=== PATIENT | female | born 1995 | race Caucasian/White ===

== ENCOUNTER 2017-11-27 12:07 | Emergency (ER) | payer OTHER ==
[~2017-11-27] VITALS: Ht 160 cm; Wt 99.8 kg
[~2017-11-27 12:07] MED LIST: ALBU90OI INH; Amoxicillin500 MG PO; CEFP200 PO; NAPR500 PO; OXYACE5T; Percocet 5-3251 EACH PO; Prednisone20 MG PO; Zofran Odt8 MG SL
[2017-11-27 13:06] LABS: BASOPHILS ABSOLUTE AUTO 0.02 K/mm3 (0.00-0.23); BASOPHILS PERCENT AUTO 0 % (0-2); EOSINOPHILS ABSOLUTE AUTO 0.19 K/mm3 (0.00-0.68); EOSINOPHILS PERCENT AUTO 2 % (0-6); Hematocrit 41.3 % (33.0-51.0); Hemoglobin 13.8 g/dL (11.5-16.0); IMMATURE GRAN ABSOLUTE AUTO 0.02 K/mm3 (0.00-0.10); IMMATURE GRAN PERCENT AUTO 0 % (0-1); LYMPHOCYTES PERCENT AUTO 22 % (21-46); MONOCYTES ABSOLUTE AUTO 0.63 K/mm3 (0.16-1.47); MONOCYTES PERCENT AUTO 7 % (4-13); Mean Corpuscular HGB 25.6 pg (26.0-34.0); Mean Corpuscular HGB Conc 33.4 g/dL (31.5-36.5); Mean Corpuscular Volume 77 fL (80-100); Mean Platelet Volume 9.5 fL (9.1-12.4); NEUTROPHILS ABSOLUTE AUTO 6.46 K/mm3 (1.96-9.15); NEUTROPHILS PERCENT AUTO 69 % (41-73); Platelet Count 371 K/mm3 (150-400); RDW Coefficient Variation 16.8 % (11.7-14.2); RDW Standard Deviation 46.2 fL (35.1-46.3); Red Blood Cell Count 5.39 M/mm3 (3.80-5.20); White Blood Cell Count 9.32 K/mm3 (4.00-11.30)
[2017-11-27 13:25] LABS: Alanine Aminotransfer (ALT/SGP 49 U/L (12-78); Albumin, Blood 3.6 g/dL (3.4-5.0); Albumin/Globulin Ratio 0.8 (0.8-1.8); Alk Phos 105 U/L (50-136); Anion Gap 8 mmol/L (6-16); Aspartate Aminotrans (AST/SGOT 25 U/L (12-37); Bilirubin, Total 0.5 mg/dL (0.1-1.0); Blood Urea Nitrogen 8 mg/dL (8-24); Bun/Creatinine Ratio 14.5 (12.0-20.0); CO2, Blood 24 mmol/L (21-32); Chloride, Blood 104 mmol/L (98-108); Creatinine, Blood 0.55 mg/dL (0.40-1.00); Globulin, Blood 4.5 g/dL (2.2-4.0); Glomerular Filtration Rate >60 (60-); Glucose, Blood 93 mg/dL (70-99); Potassium, Blood 3.8 mmol/L (3.5-5.5); Sodium, Blood 136 mmol/L (136-145); Total Protein, Blood 8.1 g/dL (6.4-8.2)
[2017-11-27 13:43] LABS: Beta HCG, Quantitative, Serum 12370 mIU/mL (0-3)
[2017-11-27] MEDS ORDERED: PROG100 (13:49)
== END 2017-11-27 14:40 | disposition home or self-care (01) ==
LOC: ER 12:07
PROVIDERS: Emergency Medicine
DX: O20.9 Hemorrhage in early pregnancy, unspecified (principal); O24.111 Pre-existing type 2 diabetes mellitus, in pregnancy, first trimester; Z3A.01 Less than 8 weeks gestation of pregnancy; Z88.1 Allergy status to other antibiotic agents; Z79.899 Other long term (current) drug therapy
CPT/HCPCS: 36415; 76801; 76817; 80053; 84702; 85025; 96360; 99284; J7030

== ENCOUNTER → 2017-12-31 | Outpatient (CLI) | payer OTHER ==
[~2017-12-31] MED LIST changes: +IBUP800 PO; +PROG100
[2018-01-01 08:50] LABS: Source Vaginal/Cervical
== END | disposition home or self-care (01) ==
LOC: LAB 16:18
PROVIDERS: Obstetrics & Gynecology
DX: Z36.89 Encounter for other specified antenatal screening (principal)
CPT/HCPCS: 87491; 87591; G0123

== ENCOUNTER → 2018-06-25 | Outpatient (CLI) | payer OTHER ==
[~2018-06-25] MED LIST changes: -IBUP800 PO
== END | disposition home or self-care (01) ==
LOC: LAB 15:08 → LAB SHORT 15:08
DX: Z34.80 Encounter for supervision of other normal pregnancy, unspecified trimester (principal)
CPT/HCPCS: 87081; 87653

== ENCOUNTER 2018-07-16 13:14 | Inpatient (IN) | payer OTHER ==
[~2018-07-16] VITALS: Ht 160 cm; Wt 104.0 kg
[2018-07-18 11:25] LABS: BASOPHILS ABSOLUTE AUTO 0.02 K/mm3 (0.00-0.23); BASOPHILS PERCENT AUTO 0 % (0-2); EOSINOPHILS ABSOLUTE AUTO 0.06 K/mm3 (0.00-0.68); EOSINOPHILS PERCENT AUTO 1 % (0-6); Hematocrit 33.5 % (33.0-51.0); Hemoglobin 10.6 g/dL (11.5-16.0); IMMATURE GRAN ABSOLUTE AUTO 0.02 K/mm3 (0.00-0.10); IMMATURE GRAN PERCENT AUTO 0 % (0-1); LYMPHOCYTES ABSOLUTE AUTO 1.71 K/mm3 (0.84-5.20); LYMPHOCYTES PERCENT AUTO 16 % (21-46); MONOCYTES ABSOLUTE AUTO 0.56 K/mm3 (0.16-1.47); MONOCYTES PERCENT AUTO 5 % (4-13); Mean Corpuscular HGB 24.1 pg (26.0-34.0); Mean Corpuscular HGB Conc 31.6 g/dL (31.5-36.5); Mean Corpuscular Volume 76 fL (80-100); Mean Platelet Volume 10.9 fL (9.1-12.4); NEUTROPHILS ABSOLUTE AUTO 8.69 K/mm3 (1.96-9.15); NEUTROPHILS PERCENT AUTO 79 % (41-73); Platelet Count 277 K/mm3 (150-400); RDW Coefficient Variation 13.5 % (11.7-14.2); RDW Standard Deviation 37.3 fL (35.1-46.3); Red Blood Cell Count 4.39 M/mm3 (3.80-5.20); White Blood Cell Count 11.06 K/mm3 (4.00-11.30)
[2018-07-20 09:18] LABS: Hematocrit 27.9 % (33.0-51.0); Hemoglobin 8.8 g/dL (11.5-16.0); Mean Corpuscular HGB 24.2 pg (26.0-34.0); Mean Corpuscular HGB Conc 31.5 g/dL (31.5-36.5); Mean Corpuscular Volume 77 fL (80-100); Mean Platelet Volume 10.7 fL (9.1-12.4); Platelet Count 215 K/mm3 (150-400); RDW Coefficient Variation 13.6 % (11.7-14.2); RDW Standard Deviation 38.2 fL (35.1-46.3); Red Blood Cell Count 3.64 M/mm3 (3.80-5.20); White Blood Cell Count 13.08 K/mm3 (4.00-11.30)
[2018-07-21] MEDS ORDERED: Percocet 5-3251 EACH PO (09:55)
[2018-07-21] MEDS ORDERED: IBUP800 PO (09:56)
== END 2018-07-21 11:00 | disposition home or self-care (01) | DRG 766 ==
LOC: BC 07-19 06:04
PROVIDERS: Obstetrics & Gynecology
PROC: 10D00Z1 Extraction of Products of Conception, Low, Open Approach (ICD-10-PCS; principal; 2018-07-19 07:30)
DX: O34.211 Maternal care for low transverse scar from previous cesarean delivery (principal); Z3A.39 39 weeks gestation of pregnancy; Z37.0 Single live birth; Z88.8 Allergy status to other drugs, medicaments and biological substances
CPT/HCPCS: 36415; 85025; 85027; 86850; 86900; 86901; J0690; J1885; J2370; J2405; J2590; J2765; J3010; J7120

== ENCOUNTER 2019-11-27 10:25 | Emergency (ER) | payer OTHER ==
[~2019-11-27] VITALS: Ht 162.6 cm; Wt 103.0 kg
[~2019-11-27 10:25] MED LIST changes: +IBUP800 PO
[2019-11-27 11:12] LABS: Source, Urine Clean Catch
[2019-11-27 11:21] LABS: Bilirubin, Urine Neg (Neg); Blood, Urine Neg (Neg); Glucose Qualitative, Urine Neg (Neg); Ketones, Urine Neg (Neg); Leukocyte Esterase, Urine Neg (Neg); Nitrite, Urine Neg (Neg); Protein, Urine Neg (Neg); Specific Gravity, Urine 1.005 (1.003-1.022); Urobilinogen, Urine NORM (Normal)
[2019-11-27 11:33] LABS: BASOPHILS ABSOLUTE AUTO 0.03 K/mm3 (0.00-0.23); BASOPHILS PERCENT AUTO 0 % (0-2); EOSINOPHILS ABSOLUTE AUTO 0.17 K/mm3 (0.00-0.68); EOSINOPHILS PERCENT AUTO 2 % (0-6); Hematocrit 44.1 % (33.0-51.0); Hemoglobin 14.5 g/dL (11.5-16.0); IMMATURE GRAN ABSOLUTE AUTO 0.02 K/mm3 (0.00-0.10); IMMATURE GRAN PERCENT AUTO 0 % (0-1); LYMPHOCYTES ABSOLUTE AUTO 1.42 K/mm3 (0.84-5.20); LYMPHOCYTES PERCENT AUTO 13 % (21-46); MONOCYTES ABSOLUTE AUTO 0.56 K/mm3 (0.16-1.47); MONOCYTES PERCENT AUTO 5 % (4-13); Mean Corpuscular HGB 26.6 pg (26.0-34.0); Mean Corpuscular HGB Conc 32.9 g/dL (31.5-36.5); Mean Corpuscular Volume 81 fL (80-100); Mean Platelet Volume 10.4 fL (9.1-12.4); NEUTROPHILS ABSOLUTE AUTO 8.61 K/mm3 (1.96-9.15); NEUTROPHILS PERCENT AUTO 80 % (41-73); Platelet Count 332 K/mm3 (150-400); RDW Standard Deviation 43.8 fL (35.1-46.3); Red Blood Cell Count 5.45 M/mm3 (3.80-5.20); White Blood Cell Count 10.81 K/mm3 (4.00-11.30)
[2019-11-27 11:44] LABS: Appearance, Urine Clear (Clear); Color, Urine Yellow (P-Yellow)
[2019-11-27 12:01] LABS: Alk Phos 71 U/L (50-136); Anion Gap 7 mmol/L (6-16); Aspartate Aminotrans (AST/SGOT 63 U/L (12-37); Blood Urea Nitrogen 15 mg/dL (8-24); CO2, Blood 23 mmol/L (21-32); Calcium, Blood 9.3 mg/dL (8.5-10.1); Chloride, Blood 108 mmol/L (98-108); Glomerular Filtration Rate >60 (60-); Glucose, Blood 91 mg/dL (70-99); Potassium, Blood 3.8 mmol/L (3.5-5.5); Sodium, Blood 138 mmol/L (136-145)
[2019-11-27 12:02] LABS: Alanine Aminotransfer (ALT/SGP 109 U/L (12-78)
[2019-11-27 13:50] LABS: CPK Creatine Kinase 72 U/L (26-193); Troponin I <0.015 ng/mL (0.000-0.040)
[2019-11-27 14:00] LABS: Creatine Kinase MB <1.0 ng/mL (0.0-3.6); Creatine Kinase MB Index Unable to Calculate (0.0-4.0)
== END 2019-11-27 14:47 | disposition home or self-care (01) ==
LOC: ER 10:25
PROVIDERS: Emergency Medicine
DX: R07.9 Chest pain, unspecified (principal); R10.13 Epigastric pain; R10.11 Right upper quadrant pain; E11.9 Type 2 diabetes mellitus without complications; Z88.1 Allergy status to other antibiotic agents
CPT/HCPCS: 36415; 71046; 76705; 80053; 81003; 81025; 82550; 82553; 83690; 84484; 85025; 93005; 93010; 96374; 96375; 99285-25; J1885; J2405; J3010

== ENCOUNTER 2021-01-24 08:43 | Emergency (ER) | payer OTHER ==
[~2021-01-24] VITALS: Ht 162.6 cm; Wt 104.3 kg
[2021-01-24 09:17] LABS: BASOPHILS ABSOLUTE AUTO 0.01 K/mm3 (0.00-0.23); BASOPHILS PERCENT AUTO 0 % (0-2); EOSINOPHILS ABSOLUTE AUTO 0.15 K/mm3 (0.00-0.68); EOSINOPHILS PERCENT AUTO 2 % (0-6); Hematocrit 42.1 % (33.0-51.0); Hemoglobin 14.4 g/dL (11.5-16.0); IMMATURE GRAN ABSOLUTE AUTO 0.02 K/mm3 (0.00-0.10); IMMATURE GRAN PERCENT AUTO 0 % (0-1); LYMPHOCYTES ABSOLUTE AUTO 1.43 K/mm3 (0.84-5.20); LYMPHOCYTES PERCENT AUTO 17 % (21-46); MONOCYTES PERCENT AUTO 5 % (4-13); Mean Corpuscular HGB 28.2 pg (26.0-34.0); Mean Corpuscular HGB Conc 34.2 g/dL (31.5-36.5); Mean Corpuscular Volume 83 fL (80-100); Mean Platelet Volume 9.6 fL (9.1-12.4); NEUTROPHILS ABSOLUTE AUTO 6.56 K/mm3 (1.96-9.15); NEUTROPHILS PERCENT AUTO 77 % (41-73); Platelet Count 312 K/mm3 (150-400); RDW Coefficient Variation 13.2 % (11.7-14.2); RDW Standard Deviation 39.4 fL (35.1-46.3); White Blood Cell Count 8.57 K/mm3 (4.00-11.30)
[2021-01-24 09:47] LABS: Alanine Aminotransfer (ALT/SGP 40 U/L (12-78); Albumin, Blood 3.6 g/dL (3.4-5.0); Albumin/Globulin Ratio 0.8 (0.8-1.8); Alk Phos 92 U/L (50-136); Anion Gap 3 mmol/L (6-16); Aspartate Aminotrans (AST/SGOT 20 U/L (12-37); Bilirubin, Total 0.7 mg/dL (0.1-1.0); Blood Urea Nitrogen 12 mg/dL (8-24); Bun/Creatinine Ratio 20.6 (12.0-20.0); C-REACTIVE PROTEIN, EXT RANGE 0.487 mg/dL (0.000-0.300); CO2, Blood 27 mmol/L (21-32); Calcium, Blood 8.5 mg/dL (8.5-10.1); Chloride, Blood 109 mmol/L (98-108); Creatinine, Blood 0.58 mg/dL (0.40-1.00); Globulin, Blood 4.5 g/dL (2.2-4.0); Glomerular Filtration Rate >60 (60-); Glucose, Blood 92 mg/dL (70-99); Potassium, Blood 3.9 mmol/L (3.5-5.5); Sodium, Blood 139 mmol/L (136-145); Total Protein, Blood 8.1 g/dL (6.4-8.2)
[2021-01-24] MEDS ORDERED: XYLIMELTS550 MG MM (10:55)
[2021-01-24] MEDS ORDERED: AMOCLA875 PO (10:55)
[2021-01-24] MEDS ORDERED: IBU800 MG PO (10:55)
== END 2021-01-24 11:50 | disposition home or self-care (01) ==
LOC: ER 08:43
PROVIDERS: Physician Assistant
DX: K11.20 Sialoadenitis, unspecified (principal); E11.9 Type 2 diabetes mellitus without complications; Z88.1 Allergy status to other antibiotic agents
CPT/HCPCS: 36415; 70491; 80053; 85025; 86140; 86308; 87081; 87430; 96365-59; 96375-59; 99284-25; J1100; J2543; J7030; Q9967

== ENCOUNTER 2021-08-12 03:26 | Emergency (ER) | payer OTHER ==
[~2021-08-12] VITALS: Ht 157.5 cm; Wt 106.6 kg
[~2021-08-12 03:26] MED LIST changes: +AMOCLA875 PO; +IBU800 MG PO; +XYLIMELTS550 MG MM
[2021-08-12] MEDS ORDERED: AMOCLA875 PO (06:14)
== END 2021-08-12 06:37 | disposition home or self-care (01) ==
LOC: ER 03:26
DX: K11.21 Acute sialoadenitis (principal); E11.9 Type 2 diabetes mellitus without complications; Z88.1 Allergy status to other antibiotic agents
CPT/HCPCS: 36415; 70491; 96365-59; 96375-59; 99283-25; J0295; J1885; Q9967

== ENCOUNTER → 2022-04-07 | Outpatient (CLI) | payer OTHER | END | disposition home or self-care (01) | LOC: LAB SHORT 17:14 → LAB 17:14 | PROVIDERS: Advanced Practice Midwife | DX: Z01.419 Encounter for gynecological examination (general) (routine) without abnormal findings (principal) | CPT/HCPCS: G0123 ==

== ENCOUNTER → 2023-07-31 | Outpatient (CLI) | payer OTHER | LOC: LAB SHORT 16:37 → LAB 16:37 | DX: Z33.1 Pregnant state, incidental (principal); N39.0 Urinary tract infection, site not specified | CPT/HCPCS: 84702; 87086 ==

== ENCOUNTER 2024-04-18 03:03 | Inpatient (IN) | payer OTHER ==
[2024-04-18] VITALS (16 sets, daily range): BP systolic 96–138; BP diastolic 54–92
[~2024-04-18] VITALS: Ht 162.6 cm; Wt 86.2 kg
[~2024-04-18 03:03] MED LIST changes: +ACET500 PO; +ALLEGRA ALLERGY60 MG PO; +CEPH500 PO; +DOCU100 PO; +FERSU300 PO; +IBUP600 PO; +MIRALAX17 GM PO; +OXAYDO5 M1 PO; +PRENATAL TABLE1 EAC2 PO
[2024-04-18 05:04] LABS: BASOPHILS ABSOLUTE AUTO 0.03 K/mm3 (0.00-0.23); BASOPHILS PERCENT AUTO 0 % (0-2); EOSINOPHILS ABSOLUTE AUTO 0.06 K/mm3 (0.00-0.68); EOSINOPHILS PERCENT AUTO 1 % (0-6); Hemoglobin 13.5 g/dL (11.5-16.0); IMMATURE GRAN ABSOLUTE AUTO 0.03 K/mm3 (0.00-0.10); IMMATURE GRAN PERCENT AUTO 0 % (0-1); LYMPHOCYTES ABSOLUTE AUTO 0.99 K/mm3 (0.84-5.20); LYMPHOCYTES PERCENT AUTO 8 % (21-46); MONOCYTES ABSOLUTE AUTO 0.53 K/mm3 (0.16-1.47); MONOCYTES PERCENT AUTO 4 % (4-13); Mean Corpuscular HGB Conc 33.8 g/dL (31.5-36.5); Mean Corpuscular Volume 83 fL (80-100); Mean Platelet Volume 10.1 fL (9.1-12.4); NEUTROPHILS ABSOLUTE AUTO 10.35 K/mm3 (1.96-9.15); NEUTROPHILS PERCENT AUTO 86 % (41-73); Platelet Count 355 K/mm3 (150-400); RDW Coefficient Variation 13.1 % (11.7-14.2); RDW Standard Deviation 39.6 fL (35.1-46.3); Red Blood Cell Count 4.82 M/mm3 (3.80-5.20); White Blood Cell Count 11.99 K/mm3 (4.00-11.30)
[2024-04-18 05:25] LABS: Alanine Aminotransfer (ALT/SGP 83 U/L (12-78); Albumin, Blood 3.7 g/dL (3.4-5.0); Albumin/Globulin Ratio 0.8 (0.8-1.8); Alk Phos 181 U/L (50-136); Anion Gap 11 mmol/L (3-11); Aspartate Aminotrans (AST/SGOT 92 U/L (12-37); Bilirubin, Total 1.2 mg/dL (0.1-1.0); Blood Urea Nitrogen 19 mg/dL (8-24); Bun/Creatinine Ratio 32.9 (12.0-20.0); CO2, Blood 22 mmol/L (21-32); Calcium, Blood 8.8 mg/dL (8.5-10.1); Chloride, Blood 111 mmol/L (98-108); Creatinine, Blood 0.58 mg/dL (0.40-1.00); Globulin, Blood 4.5 g/dL (2.2-4.0); Glomerular Filtration Rate 126 (60-); Glucose, Blood 101 mg/dL (70-99); Potassium, Blood 3.8 mmol/L (3.5-5.5); Sodium, Blood 140 mmol/L (136-145); Total Protein, Blood 8.2 g/dL (6.4-8.2)
[2024-04-18] MEDS ORDERED: NS 1,000 ML IV SCH ×3 (06:20→08:50)
[2024-04-18] MEDS ORDERED: Morphine Sulfate 4 MG/1 ML Injection IV ONE (06:20)
[2024-04-18] MEDS ORDERED: Piperacillin/Tazobactam Sod 3.375 GM in NS 100 ML IV ONE (08:30)
[2024-04-18] MEDS ORDERED: Morphine Sulfate 4 MG/1 ML Injection IV PRN (08:50)
[2024-04-18] MEDS ORDERED: Ketorolac Tromethamine 30mg Vial IV PRN (08:50)
[2024-04-18] MEDS ORDERED: Lactated Ringer's 1,000 ML IV SCH (09:50)
[2024-04-18] MEDS ORDERED: Bupivacaine 0.5% HCl 5 MG/ML 30MLVIAL ONE (12:46)
--- NOTE | 2024-04-18 13:20 | NUR ---
FLUSHED LEFT HAND IV SITE WITH 5NS/PATENT.
[2024-04-18] MEDS ORDERED: Piperacillin/Tazobactam Sod 3.375 GM in NS 50 ML IV SCH (13:35)
[2024-04-18] MEDS ORDERED: Midazolam HCl 1MG / ML 2ML Vial ONE (13:46)
[2024-04-18] MEDS ORDERED: FentaNYL Citrate 50 MCG/ML 2 ML Injection ONE ×2 (13:50→16:12)
[2024-04-18] MEDS ORDERED: Sugammadex Sodium 200 MG/2ML SDV (100 MG/ML) ONE (13:50)
[2024-04-18] MEDS ORDERED: propofoL 20 ML IV ONE (13:50)
[2024-04-18] MEDS ORDERED: Dexamethasone Sod Phos 10 MG/ML 1ML VIAL ONE (13:51)
[2024-04-18] MEDS ORDERED: Rocuronium Bromide 10 MG/ML 5ML Injection IV ONE (13:51)
[2024-04-18] MEDS ORDERED: Ondansetron HCl 2 MG / ML 2ML Vial ONE (13:51)
[2024-04-18] MEDS ORDERED: Glucagon 1 MG/KIT VIAL ONE (15:00)
[2024-04-18] MEDS ORDERED: Ketorolac Tromethamine 30mg Vial ONE (15:12)
[2024-04-18] MEDS ORDERED: HYDROmorphone HCl/Pf 1MG SYR ONE (15:13)
[2024-04-18] MEDS ORDERED: HYDROcodone 5-APAP 325 TAB PO PRN (15:40)
--- NOTE | 2024-04-18 18:05 | NUR ---
SHIFT SUMMARY S/P LAP SHASHI, 3 LAP SITES GAUZE/TEGADERM CDI, CRIS DRAIN SSD. A&OX4, VSS/RA, ISMA PO CLD, AMB SBA, PAIN MANAGED, AWAITING POSTOP VOID. WILL REPORT TO ONCOMING NOC RN.
[2024-04-18] MEDS ORDERED: Ampicillin Sod/Sulbactam Sod 3 GM in NS 100 ML IV SCH (19:00)
[2024-04-18] MEDS ORDERED: FentaNYL Citrate 50 MCG/ML 2 ML Injection IV PRN (19:35)
[2024-04-19 03:32] VITALS: BP 119/84
--- NOTE | 2024-04-19 04:39 | NUR ---
SHIFT SUMMARY POD 1 LAP SHASHI PT ABLE TO REST DURING THE NIGHT. PAIN MANAGED PER EMAR. PT TOLERATING FULL LIQUIDS, VOIDING. X3 LAP SITES CLOSED WITH WG. CRIS DRAIN IN THE RLQ, DRESSING HAS SOME DRAINAGE. REINFORCED WITH GAUZE AND TEG. OUTPUT OF CRIS IS SS. VSS. NO OTHER CONCERNS AT THIS TIME, CALL LIGHT WITHIN REACH
[2024-04-19 05:11] LABS: Albumin/Globulin Ratio 0.8 (0.8-1.8); Bilirubin, Total 3.2 mg/dL (0.1-1.0); Bun/Creatinine Ratio 19.4 (12.0-20.0); Calcium, Blood 8.3 mg/dL (8.5-10.1); Creatinine, Blood 0.57 mg/dL (0.40-1.00); Globulin, Blood 3.9 g/dL (2.2-4.0); Potassium, Blood 4.1 mmol/L (3.5-5.5); Total Protein, Blood 6.9 g/dL (6.4-8.2)
[2024-04-19 08:12] VITALS: BP 116/83
[2024-04-19] MEDS ORDERED: Enoxaparin 40 MG/0.4 ML SYR SC SCH (09:00)
[2024-04-19] MEDS ORDERED: OxyCODONE 5 mg/Acetamin 325 mg TABLET PO PRN (13:25)
[2024-04-19 14:32] VITALS: BP 116/76
[2024-04-19 14:48] LABS: Albumin, Blood 3.2 g/dL (3.4-5.0); Albumin/Globulin Ratio 0.8 (0.8-1.8); Bilirubin, Total 3.5 mg/dL (0.1-1.0); Calcium, Blood 8.5 mg/dL (8.5-10.1); Creatinine, Blood 0.57 mg/dL (0.40-1.00); Potassium, Blood 3.7 mmol/L (3.5-5.5); Total Protein, Blood 7.2 g/dL (6.4-8.2)
[2024-04-19 17:22] VITALS: BP 116/76
--- NOTE | 2024-04-19 17:48 | NUR ---
TRANSFER SUMMARY PATIENT MEDICATED FOR PAIN PER EMAR THIS SHIFT. SHE IS AOX4, INEPENDENT. [facility] PICKED UP PATIENT AT 1742. REPORT CALLED BY THIS NURSE TO AZIZA MCMILLAN AT [facility] AT 1745. PATIENT TRANSFERING DUE TO NEED FOR ERCP.
== END 2024-04-19 17:55 | disposition short-term general hospital (02) | DRG 769 ==
LOC: ER 03:03 → SURS 03:24
PROVIDERS: Emergency Medicine; ADMIT Surgery
PROC: BF121ZZ Fluoroscopy of Gallbladder using Low Osmolar Contrast (ICD-10-PCS; 2024-04-18)
PROC: 0FT44ZZ Resection of Gallbladder, Percutaneous Endoscopic Approach (ICD-10-PCS; principal; 2024-04-18 12:30)
DX: O99.63 Diseases of the digestive system complicating the puerperium (principal); K80.01 Calculus of gallbladder with acute cholecystitis with obstruction; Z88.1 Allergy status to other antibiotic agents; Z79.899 Other long term (current) drug therapy; Z98.890 Other specified postprocedural states; Z98.51 Tubal ligation status
CPT/HCPCS: 36415; 74177; 74300; 76705; 80053; 82248; 83690; 85025; 93005; 93010; 94762; 96361-59; 96365-59; 96367; 96375; 96375-59; 96376; 99285-25; A9270; C1894; G0378; J0295; J1100; J1170; J1610; J1885; J2250; J2270; J2405; J2543; J2704; J3010; J7030; J7120; Q9967